=== PATIENT | female | born 1975 | race Caucasian/White ===

== ENCOUNTER 2023-01-09 16:36 | Observation (INO) ==
[2023-01-09] MEDS ORDERED: MoRPHine SULFATE 4 MG/ML 1 ML CARP\\VIAL IV PRN (16:52)
[2023-01-09] MEDS ORDERED: ONDANSETRON INJ 2 MG/ML 2 ML VIAL IV STA (16:52)
[2023-01-09] MEDS ORDERED: SODIUM CHLORIDE 0.9% 1000ML 1,000 ML IV STA (16:52)
[2023-01-09] MEDS ORDERED: MoRPHine SULFATE 4 MG/ML 1 ML CARP\\VIAL IV STA (16:52)
[2023-01-09] MEDS ORDERED: dexAMETHasone**PF** 10 MG/ML VIAL IV ONE (16:52)
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
[2023-01-09 17:54] LABS: Basophils # (auto) 0.05 K/uL (0-0.2); Basophils % (auto) 0.6 %; Eosinophils # (auto) 0.28 K/uL (0-0.50); Eosinophils % (auto) 3.2 %; Hemoglobin 10.9 g/dl (12.0-16.0); Immature Granulocytes # (auto) 0.02 K/uL (0.01-0.20); Immature Granulocytes % (auto) 0.2 %; Lymphocytes # (auto) 1.96 K/uL (1.2-3.4); Lymphocytes % (auto) 22.5 %; Mean Corpuscular Hemoglobin 28.6 pg (25.0-34.0); Mean Corpuscular Volume 86.6 fL (80.0-100.0); Mean Platelet Volume 9.7 fL (9.4-12.4); Monocytes # (auto) 0.86 K/uL (0.11-0.59); Monocytes % (auto) 9.9 %; Neutrophils # (auto) 5.53 K/uL (1.40-6.50); Neutrophils % (auto) 63.6 %; Platelet Count 292 K/uL (130-400); RDW Coefficient of Variation 13.1 % (11.5-14.5); Red Blood Count 3.81 M/uL (4.20-5.40)
[2023-01-09 18:13] LABS: Albumin Globulin Ratio 1.3 (0.9-2); Albumin Level 3.9 gm/dl (3.4-5.0); BUN Creatinine Ratio 23.2 (10-20); Bilirubin,Total 0.4 mg/dl (0.2-1.0); Creatinine Clr Calc Pharmacy 77.1 ml/min; Est GFR (African American) 99.5 ml/min; Est GFR (Non-African American) 85.8 ml/min; Potassium 3.9 mmol/L (3.5-5.1); Total Protein 6.9 gm/dl (6.0-8.3)
[2023-01-09 18:19] LABS: Troponin I High Sensitivity 2.3 pg/ml (0-14)
[2023-01-09 18:28] LABS: Pregnancy Test, Serum Negative (Negative)
--- NOTE | 2023-01-09 21:26 | Magnetic Resonance Report ---
MRI OF THE CERVICAL SPINE WITHOUT IV CONTRAST CLINICAL HISTORY: Left upper extremity weakness. COMPARISON STUDY: Radiograph of the cervical spine dated 07/31/2007. TECHNIQUE: MRI of the cervical spine is performed utilizing various T1 and T2-weighted sequences in t he axial and sagittal planes. IV contrast was not administered for this examination. The examination is mildly degraded by motion artifact. FINDINGS: Cervical spine: Vertebral body height and alignment are maintained through the cervical spine. Normal marrow signal intensity is preserved throughout the visualized bony structures. The atlantodens joanna culation is maintained. The spinous processes appear intact. No destructive bony lesion is seen. Intervertebral discs: There is mild degenerative disc desiccation. The disc spaces are preserved. Spinal cord: The cervical cord is normal in morphology and signal intensity. C2-C3: Unremarkable. C3-C4: Unremarkable. C4-C5: Unremarkable. C5-C6: A posterior disc osteophyte complex effaces the ventral subarachnoid space. The neural foramin a are clear. C6-C7: A posterior disc osteophyte complex abuts the ventral cord. There is a left lateral disc bulge at this level seen on axial image #19. This contributes to severe left-sided neural foraminal stenos is and impinges on the exiting left C7 nerve root. Minimal lateral disc bulge is seen on the right. T he right neural foramen is patent. C7-T1: Unremarkable. Soft tissues: The prevertebral and paraspinous soft tissues are normal as visualized. Brain parenchyma: The imaged brain parenchyma at the skull base is normal in appearance. IMPRESSION: 1. There is a large left lateral disc bulge at C6-C7. This contributes to severe neural foraminal flora nosis at this level with impingement on the exiting left C7 nerve root. 2. Minimal degenerative change at additional levels as above. See discussion for detailed level by le vicente analysis. 3. The cervical cord is normal in morphology and signal intensity. 4. No destructive bony process is seen. Dictated: 01/09/2023 9:01 PM Transcribed: 01/09/2023 9:21 PM Sandro [id number] Lance [id number] Electronically signed by: Scottie Chance M.D. 01/09/2023 9:24 PM
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
[2023-01-10] MEDS ORDERED: MoRPHine SULFATE 4 MG/ML 1 ML CARP\\VIAL IV PRN (02:05)
[2023-01-10] MEDS ORDERED: ONDANSETRON INJ 2 MG/ML 2 ML VIAL IV PRN (02:13)
[2023-01-10] MEDS ORDERED: SODIUM CHLORIDE 0.9% 1000ML 1,000 ML IV SCH (02:15)
[2023-01-10] MEDS: ACETAMINOPHEN 500 MG TAB PO SCH ×3 (06:20→22:12)
[2023-01-10 06:50] LABS: Basophils # (auto) 0.02 K/uL (0-0.2); Basophils % (auto) 0.2 %; Hematocrit (blood only) 32.2 % (37.0-47.0); Hemoglobin 10.5 g/dl (12.0-16.0); Immature Granulocytes # (auto) 0.03 K/uL (0.01-0.20); Immature Granulocytes % (auto) 0.3 %; Lymphocytes # (auto) 0.92 K/uL (1.2-3.4); Mean Corpuscular Hemoglobin 28.5 pg (25.0-34.0); Mean Corpuscular Hgb Conc 32.6 g/dL (32.0-36.0); Mean Corpuscular Volume 87.5 fL (80.0-100.0); Mean Platelet Volume 9.6 fL (9.4-12.4); Monocytes # (auto) 0.78 K/uL (0.11-0.59); Monocytes % (auto) 7.7 %; Neutrophils # (auto) 8.43 K/uL (1.40-6.50); Neutrophils % (auto) 82.8 %; Platelet Count 271 K/uL (130-400); RDW Standard Deviation 41.4 fL (36.4-46.3); Red Blood Count 3.68 M/uL (4.20-5.40); White Blood Count 10.18 K/ul (4.8-10.8)
[2023-01-10 07:10] LABS: BUN Creatinine Ratio 21.5 (10-20); Calcium 8.4 mg/dl (8.5-10.1); Creatinine Clr Calc Pharmacy 97.3 ml/min; Est GFR (African American) 123.4 ml/min; Est GFR (Non-African American) 106.5 ml/min; Potassium 4.2 mmol/L (3.5-5.1)
--- NOTE | 2023-01-10 09:48 | Hospitalist Progress Note ---
Date of Service January 10, 2023 Assessment & Plan (1) Left shoulder pain: Plan: acute hermiated cervical disc with impingement moderate risk, w/ 2 weeks of left shoulder pain and mild weakness that presents w/ radicular symptoms. MRI c spine shows large left lateral herniated disc w/ severe C7 spinal stenosis. MRI cervical spine, 01/09/23 There is a large left lateral disc bulge at C6-C7. This contributes to severe neural foraminal stenosis at this level with impingement on the exiting left C7 nerve root. s/p Decadron-SP 10mg x1. Pain control w/ scheduled Tylenol and prn morphine 4mg 4h. Orthospine did see patient and ordered pain management consultation Chronic mild anemia Plan SCDs and sq heparin Admission and Anticipated Discharge Date Admission Date: January 10, 2023 Subjective Patient was seen she is mostly worried about loss of muscular strength of her shoulder and her arm "giving way". Not significant radicular pain complex although imaging suggests significant foraminal compromise due to herniated disc at C6-7 Physical Exam Physical Exam: Patient was seen in the room her pain is good good control if any she does not have any significant focal neurological impairment she does have some pain when putting force on her shoulder when AB ducted greater than 90 degrees. Results & Data Results & Data Vital Signs (Past 12 Hours) Vital Signs Temp Pulse Resp BP Pulse Ox O2 Del Method 01/10/23 07:38 98.1 F 65 16 113/68 98 Room Air 01/10/23 03:00 98.2 F 80 18 98/62 L 96 Room Air 01/10/23 02:34 Room Air 01/10/23 02:00 67 18 115/74 99 Room Air 01/09/23 23:35 85 18 128/75 97 Room Air 01/09/23 21:51 73 19 123/77 97 Room Air Laboratory Results Reviewed CBC Reviewed PRP Diagnostic Findings Ordered MRI scan of left shoulder to evaluate rotator cuff PG Care Time/CCT Total # of Minutes Spent Total Time Spent with Patient: Total time spent is greater than 50% in coordination of care (as documented) at patient's floor/unit and/or counseling patient: Coding Level of Care Code 23379 SUB INP/OBS CARE 1/25MIN Diagnoses Left shoulder pain M25.512
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
[2023-01-10] MEDS: MoRPHine SULFATE 4 MG/ML 1 ML CARP\\VIAL IV PRN (13:25)
--- NOTE | 2023-01-10 13:49 | XRay Report ---
XR shoulder LT min 2V routine CLINICAL HISTORY: Left shoulder pain. COMPARISON: None FINDINGS: Alignment of the left shoulder is anatomic. There is no acute fracture. There is no osseou s lesion. Mild degenerative changes of the left acromioclavicular joint are present. Mild osseous irr egularity of the undersurface of the distal left clavicle is noted. This is not acute. Slight irregul arity of the base of the coracoid. IMPRESSION: 1. No fracture or dislocation within the left shoulder. 2. Mild degenerative changes of the left acromioclavicular joint. 3. Mild osseous irregularity of the undersurface of the distal left clavicle. This is not acute and c ould be related to previous coracoclavicular injury. ACT 112: Negative or not required by law. Electronically signed by: Barrett Biswas M.D. 01/10/2023 1:48 PM
--- NOTE | 2023-01-10 16:41 | Magnetic Resonance Report ---
MRI OF THE LEFT SHOULDER WITHOUT CONTRAST CLINICAL HISTORY: Left shoulder pain and loss of strength. 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 Evaluate for rotator cuff te ar. COMPARISON STUDY: Left shoulder radiographs performed earlier today. TECHNIQUE: Utilizing a 1.5 Loretta magnet and dedicated coil, multiplanar, multiecho imaging of the lef t shoulder was performed without intra-articular or intravenous contrast. FINDINGS: Alignment of the left shoulder is anatomic. No marrow edema or replacement is present. This exam is compromised by motion artifact. No rotator cuff tear is present. There is mild supraspinatus , infraspinatus and subscapularis tendinopathy with intermediate signal. There is no tendon retractio n or muscular atrophy. Teres minor is intact. The glenoid labrum is suboptimally assessed on this non arthrogram exam. There is an equivocal posterior superior labral tear shown on coronal T2-weighted se quence image 12 of 21. This is probably artifactual. No joint effusion. No joint bodies are present. The glenohumeral joint is unremarkable. Minimal degenerative changes of the AC joint are present. No mass or fluid collection adjacent to the left shoulder is present. Proximal long head of the biceps t endon is intact. IMPRESSION: 1. No rotator cuff tear identified. Mild rotator cuff tendinopathy. No tendon retraction or muscular atrophy. 2. Exam compromised by motion artifact. Equivocal posterior superior labral tear. 3. Minimal degenerative changes of the left AC joint. ACT 112: Negative or not required by law. Electronically signed by: Barrett Biswas M.D. 01/10/2023 4:40 PM
[2023-01-10] MEDS: HEPARIN SOD 5,000 UNIT/0.5 ML VIAL SQ SCH (19:22)
[2023-01-11] MEDS: MoRPHine SULFATE 4 MG/ML 1 ML CARP\\VIAL IV PRN ×2 (05:52→10:39)
[2023-01-11] MEDS: ACETAMINOPHEN 500 MG TAB PO SCH ×3 (06:42→22:26)
[2023-01-11] MEDS: HEPARIN SOD 5,000 UNIT/0.5 ML VIAL SQ SCH ×2 (09:12→19:02)
[2023-01-11] MEDS ORDERED: traMADol HCL 50 MG TABLET PO STA (12:26)
[2023-01-11] MEDS ORDERED: DICLOFENAC SOD 1% GEL 100 GM TUBE EXT ONE (12:28)
[2023-01-11] MEDS: traMADol HCL 50 MG TABLET PO SCH ×2 (12:42→17:21)
[2023-01-11] MEDS ORDERED: dexAMETHasone 6 MG in SYRINGE 0 ML IV ONE (12:45)
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
--- NOTE | 2023-01-11 16:54 | Hospitalist Progress Note ---
Date of Service January 11, 2023 Assessment & Plan (1) Left shoulder pain: Plan: acute hermiated cervical disc with impingement moderate risk, w/ 2 weeks of left shoulder pain and mild weakness that presents w/ radicular symptoms. MRI c spine shows large left lateral herniated disc w/ severe C7 spinal stenosis. MRI cervical spine, 01/09/23 There is a large left lateral disc bulge at C6-C7. This contributes to severe neural foraminal stenosis at this level with impingement on the exiting left C7 nerve root. s/p Decadron-SP 10mg x1. Repeat Decadron dosing and will likely dose with a tapering steroid outpatient Pain control w/ scheduled Tylenol and prn Ultram therapy with addition to parenteral morphine 4mg 4h. Also attempting to use some Voltaren topical treatment Ortho spine did see patient and ordered pain management consultation, pain management will see in the office on Saturday the for likely cervical spine injection Chronic mild anemia Plan SCDs and sq heparin Admission and Anticipated Discharge Date Admission Date: January 10, 2023 Subjective Patient has worsening symptoms today mostly of radicular pain from her neck to her shoulder to her arm. She still some arm weakness. She was seen by pain management is recommending outpatient pain treatment Physical Exam Physical Exam: Patient appears uncomfortable. She has decreased strength to her left arm 4/5 for flexion extension and abduction Results & Data Results & Data Vital Signs (Past 12 Hours) Vital Signs Temp Pulse Resp BP Pulse Ox O2 Del Method 01/11/23 15:07 97.9 F 72 18 114/67 97 Room Air 01/11/23 07:36 97.9 F 63 16 113/70 95 Room Air PG Care Time/CCT Total # of Minutes Spent Total Time Spent with Patient: Total time spent is greater than 50% in coordination of care (as documented) at patient's floor/unit and/or counseling patient: Coding Level of Care Code 59335 SUB INP/OBS CARE 2/35MIN Diagnoses Left shoulder pain M25.512
[2023-01-11] MEDS: oxyCODONE HCL IR 5 MG TAB (IMMEDIATE RELEASE) PO PRN ×2 (17:54→23:58)
--- NOTE | 2023-01-12 00:01 | Electrocardiogram Report ---
Test Reason : Blood Pressure : / mmHG Vent. Rate : 080 BPM Atrial Rate : 080 BPM P-R Int : 170 ms QRS Dur : 104 ms QT Int : 390 ms P-R-T Axes : 040 069 047 degrees QTc Int : 449 ms Normal sinus rhythm Normal ECG When compared with ECG of 20-JAN-2016 22:42, No significant change was found Confirmed by True Archer ([id number]) on 01/12/2023 12:01:31 AM Referred By: REFERRED SELF Confirmed By:True Archer
[2023-01-12] MEDS: ACETAMINOPHEN 500 MG TAB PO SCH (06:14)
--- NOTE | 2023-01-12 06:38 | Billing Data ---
Date of Service January 12, 2023 Coding Level of Care Code 46911 INT INP/OBS CARE
[2023-01-12] MEDS: HEPARIN SOD 5,000 UNIT/0.5 ML VIAL SQ SCH (08:17)
[2023-01-12] MEDS ORDERED: dexAMETHasone 6 MG in SYRINGE 0 ML IV SCH (09:00)
[2023-01-12] MEDS ORDERED: dexAMETHasone 4 MG TAB PO ONE (10:28)
[2023-01-12] MEDS: oxyCODONE HCL IR 5 MG TAB (IMMEDIATE RELEASE) PO PRN (11:45)
--- NOTE | 2023-01-12 13:42 | Discharge Summary ---
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 Since then, she has had 8/10 severity constant left shoulder/radicular pain that goes down her arm to her fingers, w/ intermittent paresthesias. 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 Moving R shoulder affects the pain in the left shoulder. She unfortunately has not modified her work activity and has continued lifting boxes and reached up shelves during her job at [employer]. She saw her [facility] PCP last week who prescribed Flexeril and Mobic, but these did not help. Patient did not have neck pain. 2 days ago, she notes possible aggravation after lifting a 15lb kettleball above her head during modified gym exercise and dropping it abruptly from weakness. Since waking up this morning, she has had left neck pain. However, her main pain is still the shoulder. No fever, chills, wt loss, cancer hx, or prior neck or shoulder injury. ED course: Decadron-SP 10mg. Morphine 4mg x2. 1L NSS bolus. vss. wbc 8.7. hb 10.9, baseline 11s. bmp wnl. lipase neg. hcg neg. Principal Diagnosis Cervical radiculopathy Left shoulder labral tear Discharge Exam Patient with some weakness to her arm but awake alert appropriate she has reasonable pain control and is anticipating going home with follow-up with outpatient pain management for injection on Saturday the Discharge Data Allergies Allergy/AdvReac Type Severity Reaction Status Date / Time diphenhydramine Allergy Severe HIVES Verified 01/05/20 14:06 Penicillins Allergy Severe SORE MOUTH Verified 01/05/20 14:06 Consultations 01/09/23 22:26 ED Decision to Admit Stat 01/10/23 01:31 Consult Orthopedic Surgery Routine 01/10/23 10:08 Consult Pain Management Routine Ordered Studies 01/09/23 16:52 MR cervical spine wo con Stat 01/10/23 MRI Shoulder [MR shoulder LT wo con] Routine Hospital Course (1) Left shoulder pain: acute hermiated cervical disc with impingement moderate risk, w/ 2 weeks of left shoulder pain and mild weakness that presents w/ radicular symptoms. MRI c spine shows large left lateral herniated disc w/ severe C7 spinal stenosis. MRI cervical spine, 01/09/23There is a large left lateral disc bulge at C6-C7. This contributes to severe neural foraminal stenosis at this level with impingement on the exiting left C7 nerve root. s/p Decadron-SP 10mg x1. Repeat Decadron to be continued orally as an outpatient Pain control w/ scheduled Tylenol and prn oxycodone therapy with topical [place] balm per patient's request heat and cooling pad as needed Ortho spine did see patient and ordered pain management consultation, pain management will see in the office on Saturday the for likely cervical spine injection Chronic mild anemia (2) Cervical radiculopathy: (3) Cervical herniated disc: Total Time Total Time Spent Total Time Spent (In Minutes): It required greater than 30 minutes to prepare this patient for discharge Discharge Plan Discharge Items Patient Disposition: Home - Self-Care Reason For Visit: L CERVICAL RADICULOPATHY W DISC HERNIATION C7 IMP Discharge Diagnosis: C6-7 left herniated disc with radiculopathy left shoulder labrum tear Activity: Per Instructions section Activity Comment: no lifting above shoulder, no heavy strength training Non-emergency contact: Primary Care Provider, Surgeon and Specialist Call non-emergency contact if: your symptoms worsen Follow-up/Referrals: [facility],Medicine [Primary Care Provider] - Diet: Regular Addtl Attending Provider Instructions: You been diagnosed with a herniated cervical disc of the cervical 6 7 level which will affect your arm and shoulder. Recommendations by orthopedics is to see pain management for possible injections. Until that time you should avoid heavy strength training exercise and avoid lifting above your shoulder level. Certainly if you develop increasing radiation of pain or worsening strength you should report immediately back to the hospital. Also was discovered you have a tear in the labrum of your left shoulder but your rotator cuff despite some tendinitis is intact Pending Studies at Discharge: No Stand-Alone Forms: My [employer], Smoking Cessation Medications and DC Order Prescriptions: New acetaminophen [Tylenol Extra Strength] 500 mg Tablet 1,000 mg PO Q8H Qty: 30 0RF dexamethasone 4 mg tablet 4 mg PO DAILY Qty: 3 0RF oxycodone 5 mg tablet 5 - 10 mg PO Q6H PRN (Reason: pain) Qty: 20 0RF Continued diazepam 5 mg tablet 5 mg PO .COMPLEX Qty: 2 0RF Rx Instructions: 5 mg PO 1 PO 1.5 hours before procedure, may repeat 0.5 hours prior to procedure; Discharge Orders: Discharge Order (Routine); Ordered 01/12/23 Ordered By: Kaiden Gonsales/Other Patient Handouts: ED Herniated Intervertebral Disk Admission Data Admit Date/Time: 01/10/23 01:31 Attending Provider: Kaiden Elliott Admit Provider: Froilan Martínez Primary Care Provider: [facility],Medicine Other Providers: Remi Manjarrez ; Daniel Costello ; Danyell Romano Other Interventions: Discharge Summary Assessment (RN) Last Done: 01/12/23 10:52 Coding Level of Care Code 44797 INP/OBS DISCH >30 MIN Diagnoses Left shoulder pain M25.512 Cervical radiculopathy M54.12 Cervical herniated disc M50.20
== END 2023-01-12 15:59 | disposition home or self-care (01) ==
LOC: 3N 16:36 → ED 16:36 → SUATTDRO 01-10 01:31 → 3N 01-10 02:34